=== PATIENT | male | born 1945 | race Caucasian/White ===

== ENCOUNTER 2018-01-28 06:08 | Day surgery (SDC) | payer MEDICARE, OTHER ==
[2018-01-28] MEDS ORDERED: LACTATED RINGERS 1,000 ML IV ONE (06:50)
[2018-01-28] MEDS ORDERED: fentaNYL 100 MCG/2 ML VIAL IVP ONE (07:30)
[2018-01-28] MEDS ORDERED: MIDAZOLAM 2 MG/2 ML VIAL IVP ONE (07:30)
[2018-01-28 08:32] VITALS: BP 109/61
== END 2018-01-28 06:09 | disposition home or self-care (01) ==
LOC: SDS 06:08
PROVIDERS: ATTEND Surgery
PROC: 0DBN8ZX Excision of Sigmoid Colon, Via Natural or Artificial Opening Endoscopic, Diagnostic (ICD-10-PCS; 2018-01-28)
PROC: 0DBP8ZX Excision of Rectum, Via Natural or Artificial Opening Endoscopic, Diagnostic (ICD-10-PCS; principal; 2018-01-28 07:30)
DX: Z12.11 Encounter for screening for malignant neoplasm of colon (principal); D12.5 Benign neoplasm of sigmoid colon; K64.8 Other hemorrhoids; D12.8 Benign neoplasm of rectum; I10 Essential (primary) hypertension; E78.5 Hyperlipidemia, unspecified
CPT/HCPCS: 45385; J7120

== ENCOUNTER 2020-02-18 14:14 | Outpatient (CLI) | payer MEDICARE, OTHER ==
--- NOTE | 2020-02-19 00:59 | XRAY Report ---
Reason: PAIN OF TOE OF RIGHT FOOT Procedure Date: 02/18/2020 Accession Number: [id number] / [id number] Procedure: XR - Toe(s) RT CPT Code: Final Report FULL RESULT: EXAM: RIGHT TOE RADIOGRAPHY EXAM DATE: 02/18/2020 02:27 PM. CLINICAL HISTORY: PAIN OF TOE OF RIGHT FOOT. COMPARISON: None. TECHNIQUE: 3 views. FINDINGS: Bones: Tiny fractures of the tuft of the first distal phalanx. Remainder of the bones are unremarkable. Joints: Normal. No subluxations. Soft Tissues: Soft tissue swelling to the distal first digit. IMPRESSION: Fractured tuft of the first distal phalanx with soft tissue swelling. RADIA
== END 2020-02-18 14:15 | disposition home or self-care (01) ==
LOC: DI 14:14
PROVIDERS: ATTEND Physician Assistant
DX: S92.421A Displaced fracture of distal phalanx of right great toe, initial encounter for closed fracture (principal)
CPT/HCPCS: 73660

== ENCOUNTER 2023-05-15 07:00 | Outpatient (CLI) | payer MEDICARE, OTHER ==
--- NOTE | 2023-05-15 16:12 | XRAY Report ---
PROCEDURE: Knee 3 View RT INDICATIONS: RIGHT KNEE SPRAIN TECHNIQUE: 3 views of the right knee(s) were acquired. COMPARISON: None. FINDINGS: Bones: No fractures or dislocations. No suspicious bony lesions. Chondrocalcinosis. Soft tissues: Small knee joint effusion. No suspicious soft tissue calcifications or masses. IMPRESSION: No acute bony abnormality, with a small knee joint effusion. If there remains a high clinical concern for fracture, consider cross-sectional imaging now. If pain persists, consider repeat x-ray in 10-14 days or cross-sectional imaging. Chondrocalcinosis, which could be age-related, associated with CPPD or parathyroid disorder. Reviewed by: Shahram Mustafa on 05/15/2023 4:11 PM PDT Approved by: Shahram Mustafa on 05/15/2023 4:11 PM PDT Station ID: [id number]
== END 2023-05-15 23:59 | disposition home or self-care (01) ==
LOC: DI.S 07:00
PROVIDERS: ATTEND Emergency Medicine
DX: S83.421A Sprain of lateral collateral ligament of right knee, initial encounter (principal); M25.461 Effusion, right knee; M11.261 Other chondrocalcinosis, right knee